=== PATIENT | male | born 1990 | race American Indian/Alaskan Native ===

== ENCOUNTER 2016-09-05 14:49 | Emergency (ER) | payer SELFPAY ==
--- NOTE | 2016-09-11 13:56 | ER ---
ADMIT: 09/05/2016 RM/LOC: ER [facility] MR#: [id number] [address] [facility] [address] [place], [place] [address] MINDY REDMAN, SAMANTHA [address] [place], [place] [address] Emergency Room Report SEX: M AGE: 26 : 1990 DATE: 09/05/2016 HISTORY OF PRESENT ILLNESS: A 26-year-old male, presents to emergency room with left upper jaw dental pain. He said it has gotten worse in the last day. His teeth are not in very good repair, but he said he has done the best he can to keep him from coming to the ER. He is taking Aleve at home and it has not helped much. He says it is very sensitive to cold drinks. PAST MEDICAL HISTORY: He had a surgery on his right hand and had to have it pinned. He had hydrocodone for his hand injury and just used the last tablet this morning. SOCIAL HISTORY: He is a smoker, half a pack a day and drinks alcohol socially. PHYSICAL EXAMINATION: VITAL SIGNS: Within normal limits, although he is mildly anxious. GENERAL: He is tearful, pretty apprehensive, and nervous. HEENT: He does have tenderness in the left maxilla. Tooth #15 and #16 are down to the dentin. Tooth is fractured and some caries around it as well. Otherwise, examination is negative. EMERGENCY ROOM COURSE Dental block, bupivacaine 0.5% two jets. Very effective, knocked the pain down to 0 after the block. I was able to use some catalyst and cream to cover the exposed area and give him more time to enjoy his pain-free time. He was discharged from the ER with medication and antibiotics to prevent infection. Collin #12. Follow up with dentist as soon as possible. Avoid chewing on the affected area and reduce smoking. I did make some dental blocks, a catalyst and a powder that made it into a barrier for the tooth and preventing any fluid or any contact to the root of the tooth. MAYO Candelaria / Bryant Aaron MD / leighann JOB #: [id number] CC: Bryant Aaron MD, Attending Physician Darshan Gandhi MD, Family Physician
== END 2016-09-05 16:45 | disposition home or self-care (01) ==
LOC: ER 14:49
PROC: 3E0T3BZ Introduction of Anesthetic Agent into Peripheral Nerves and Plexi, Percutaneous Approach (ICD-10-PCS; principal; 2016-09-05)
DX: K02.9 Dental caries, unspecified (principal); F17.210 Nicotine dependence, cigarettes, uncomplicated; Z79.899 Other long term (current) drug therapy

== ENCOUNTER 2016-09-11 05:35 | Emergency (ER) | payer SELFPAY ==
--- NOTE | 2016-09-14 01:36 | ER ---
ADMIT: 09/11/2016 RM/LOC: ER [facility] MR#: [id number] [address] [address] IRON HORSE, SAMANTHA Hammer [address] [place] [address] Emergency Room Report SEX: M AGE: 26 : 1990 DATE: 09/11/2016 ADDENDUM: CHIEF COMPLAINT: Dental pain. HISTORY OF PRESENT ILLNESS: The patient is a 26-year-old male, otherwise healthy, presents to the ER complaining of dental pain in his left upper jaw. This is not new, he has poor dentition. He has not had any fevers, chills, nausea, or vomiting. He is swallowing without difficulty and has no facial swelling. PAST MEDICAL HISTORY: Unremarkable. MEDICATIONS: None. ALLERGIES: NONE. PHYSICAL EXAMINATION: GENERAL: The patient is alert, oriented, in no distress. He is handling his own airway without difficulty. MOUTH: Oropharynx shows no abnormalities. The dentition is poor overall. A #16 tooth is the tooth he says which is bothering him and does have significant decay. There is no surrounding infection I can appreciate. The patient is breathing without difficulty. LUNGS: Clear. EMERGENCY DEPARTMENT COURSE: I used a dental block with bupivacaine and patient had significant improvement with that. He is sent home with [facility], and he is to follow up with dentist as soon as possible. He was not placed on antibiotics as he has no signs of infection. DIAGNOSES: 1. Poor dentition. 2. Dental caries. 3. Dental pain. Tony Abdul MD/ leighann JOB #: [id number] CC: Tony Abdul MD, Attending Physician Pete Mata MD, Family Physician
== END 2016-09-11 07:09 | disposition home or self-care (01) ==
LOC: ER 05:35
DX: K02.9 Dental caries, unspecified (principal); K00.7 Teething syndrome